=== PATIENT | female | born 1990 | race Two or more races ===

== ENCOUNTER 2024-09-15 21:44 | Emergency (ER) | payer MEDICAID, SELFPAY ==
[2024-09-15 21:49] VITALS: BP 145/92; PULSE 86; RESP 18; O2SAT 98
--- NOTE | 2024-09-15 23:29 | PC.NURSE ---
NO ANSWER AT ER LOBBY OR OUTSIDE ER TO BE SEEN.
--- NOTE | 2024-09-15 23:35 | PC.NURSE ---
NO ANSWER AT ER LOBBY OR OUTSIDE ER TO BE SEEN.
--- NOTE | 2024-09-15 23:45 | PC.NURSE ---
NO ANSWER AT ER LOBBY OR OUTSIDE ER TO BE SEEN.
== END 2024-09-15 23:50 | disposition left against medical advice (07) ==
LOC: SERX 23:55
PROVIDERS: Emergency Provider Emergency Medicine
DX: Z53.21 Procedure and treatment not carried out due to patient leaving prior to being seen by health care provider (principal)
CPT/HCPCS: 99281